=== PATIENT | female | born 1980 | race Caucasian/White ===

== ENCOUNTER 2017-09-07 10:54 | Day surgery (SDC) | payer SELFPAY ==
[~2017-09-07] VITALS: Ht 172.7 cm; Wt 69.1 kg
[2017-09-07 12:02] VITALS: BP 109/67; PULSE 87; TEMP 97.7
[2017-09-07] MEDS ORDERED: ZOLOFT 100MG100 MG PO (12:17)
[2017-09-07] MEDS ORDERED: BENADRYL25 M2 PO (12:22)
[2017-09-07] MEDS ORDERED: MOTRIN 600600 MG/TAB PO (15:05)
[2017-09-07] MEDS ORDERED: COLACE 100100 MG/CAP PO (15:05)
[2017-09-07] MEDS ORDERED: PERCOCET 325 MG1 TA2 PO (15:05)
[2017-09-07] MEDS ORDERED: ZOFRAN ODT4 MG PO (15:05)
[2017-09-07 15:40] VITALS: BP 107/60; PULSE 72; TEMP 97.7
[2017-09-07 16:00] VITALS: BP 103/58; PULSE 68
[2017-09-07 16:15] VITALS: BP 106/57; PULSE 65
[2017-09-07 16:30] VITALS: BP 106/55; PULSE 69
[2017-09-07 17:00] VITALS: BP 100/62; PULSE 85
== END 2017-09-07 17:45 | disposition home or self-care (01) ==
LOC: SDCO 10:54
DX: K80.10 Calculus of gallbladder with chronic cholecystitis without obstruction (principal); F17.210 Nicotine dependence, cigarettes, uncomplicated; F32.9 Major depressive disorder, single episode, unspecified; Z98.82 Breast implant status
CPT/HCPCS: J0690; J1100; J1170; J1885; J2405; J2550; J2704; J2710; J2765; J3010; J7120; Q9967

== ENCOUNTER → 2019-05-10 | Outpatient (CLI) | payer SELFPAY ==
[~2019-05-10] MED LIST: BENADRYL25 M2 PO; COLACE 100100 MG/CAP PO; MOTRIN 600600 MG/TAB PO; PERCOCET 325 MG1 TA2 PO; ZOFRAN ODT4 MG PO; ZOLOFT 100MG100 MG PO
== END ==
LOC: MC.RAD 11:38
DX: Z12.31 Encounter for screening mammogram for malignant neoplasm of breast (principal)

== ENCOUNTER 2023-11-18 09:24 | Emergency (ER) | payer OTHER ==
[~2023-11-18] VITALS: Ht 172.7 cm; Wt 84.1 kg
[2023-11-18 09:49] VITALS: TEMP 98
[2023-11-18] MEDS ORDERED: Ketorolac 30 MG/ML VIAL IV ONE (10:30)
[2023-11-18] MEDS ORDERED: Morphine 4 MG/ML VIAL IV ONE (11:15)
[2023-11-18 11:59] LABS: BASO # 0.1 K/mm3 (0.0-0.2); EOS # 0.2 K/mm3 (0.0-0.7); EOS % 2.5 % (0.0-4.0); GRAN # 3.6 K/mm3 (1.4-6.5); HEMATOCRIT 39.2 % (37.0-47.0); HEMOGLOBIN 12.8 g/dl (12.5-16.0); LYMPH # 1.9 K/mm3 (1.2-3.4); LYMPH % 30.3 % (20.0-51.0); MEAN CELL VOLUME 93 fl (80.0-100.0); MEAN CORPUSCULAR HEMOGLOBIN 30 pg (27-31); MEAN CORPUSCULAR HGB CONC 33 g/dl (33.0-37.0); MEAN PLATELET VOLUME 9.1 fl (7.4-10.4); MONO # 0.6 K/mm3 (0.1-0.6); MONO % 8.9 % (1.7-9.3); PLATELET COUNT 325 K/mm3 (130-400); RED BLOOD COUNT 4.22 M/mm3 (4.10-5.30); REDCELL DISTRIBUTION WIDTH-CV 12.5 % (11.5-14.5)
[2023-11-18 12:15] LABS: ALANINE AMINOTRANSFERASE 57 U/L (0-55); ALBUMIN 3.7 gm/dL (3.5-5.0); ALKALINE PHOSPHATASE 81 U/L (40-150); ANION GAP 7 mmol/L (7-16); AST,SGOT 25 U/L (5-34); BILIRUBIN,TOTAL 0.3 mg/dL (0.2-1.2); BLOOD UREA NITROGEN 6 mg/dL (7-19); CALCIUM 9.9 mg/dL (8.4-10.2); CARBON DIOXIDE 25 mmol/L (22-29); CHLORIDE 107 mmol/L (98-107); CREATININE, serum 0.79 mg/dL (0.57-1.11); GLUCOSE 96 mg/dL (70-99); POTASSIUM 4.1 mmol/L (3.5-4.5); SODIUM 139 mmol/L (136-145); TOTAL PROTEIN 7.1 gm/dL (6.2-8.1)
[2023-11-18 12:28] LABS: TROPONIN-I < 0.010 ng/mL (0.00-0.033)
[2023-11-18] MEDS ORDERED: VOLTAREN GEL 1%1 TU TP (12:46)
[2023-11-18] MEDS ORDERED: FLEXERIL 1010 MG/TAB PO (12:46)
[2023-11-18 13:00] VITALS: BP 146/90; PULSE 68
[2023-11-18] MEDS ORDERED: ATIVAN 1MG T1 MG/TAB PO (13:05)
== END 2023-11-18 13:02 | disposition home or self-care (01) ==
LOC: COL.ER 09:24
PROVIDERS: Physician Assistant
DX: M62.838 Other muscle spasm (principal); Z87.891 Personal history of nicotine dependence
CPT/HCPCS: J1885; J2270; J2360; J3360